=== PATIENT | female | born 2000 | race African-American/Black ===

== ENCOUNTER 2024-05-21 08:34 | Emergency (ER) | payer OTHER, SELFPAY ==
[2024-05-21] VITALS (8 sets, daily range): BP systolic 133–137; BP diastolic 85–91; PULSE 76–93; RESP 17–20; TEMP 36.4; O2SAT 96–100
--- NOTE | ~2024-05-21 | XR_ITS ---
EXAMINATION: XR chest 2V DATE: 05/21/2024 09:11 INDICATION: Chest pain. TECHNIQUE: Frontal and lateral views of the chest were obtained. COMPARISON: None. FINDINGS: There is no pneumonia, pleural effusion, or pneumothorax. The heart size is normal. IMPRESSION: 1. No acute cardiopulmonary disease. Reviewed, dictated and finalized at location [] CLEANER
--- NOTE | 2024-05-21 08:36 | ECG_ITS ---
Test Date: 2024-05-21 08:40:52 Measurements Intervals Fate Rate: 85 P: 59 NJ: 146 QRS: 28 QRSD: 83 T: 47 QT: 360 QTc: 428 Interpretive Statements SINUS RHYTHM WITH SINUS ARRHYTHMIA NORMAL ECG No previous ECG available for comparison Electronically Signed On 05-21-2024 08:49:43 ENTERPRISE SALES PERSON by Denis Delaney D.O.
[2024-05-21] MEDS: ASPIRIN 81 MG CHEWABLE TABLET 324 MG PO (08:44)
[2024-05-21 08:51] LABS: Basophils Absolute Auto 0.1 K/mm3 (0.0-0.1); Basophils Percent Auto 0.6 % (0.2-1.2); Eosinophils Absolute Auto 0.2 K/mm3 (0-0.3); Hematocrit 37.5 % (37.0-47.0); Hemoglobin 11.5 g/dL (12.0-15.0); Immature Granulocyte Absolute 0.03 K/mm3 (0.00-0.031); Immature Granulocyte Percent A 0.3 % (0-0.5); Lymphocytes Absolute Auto 3.03 K/mm3 (0.9-3.2); Lymphocytes Percent Auto 34.1 % (18.3-44.2); Mean Corpuscular HGB Conc 30.7 g/dl (32-36); Mean Corpuscular Hemoglobin 25.7 pg (26-34); Mean Corpuscular Volume 83.9 fl (80-100); Mean Platelet Volume 10.7 fl (7.4-10.4); Monocytes Absolute Auto 0.4 K/mm3 (0.1-0.6); Neutrophils Absolute Auto 5.2 K/mm3 (1.3-6.7); Platelet Count Result 285 k/mm3 (150-375); Red Blood Count 4.47 M/mm3 (4.2-5.4); Red Cell Distribution Width 15.2 % (11.5-14.5); White Blood Count 8.9 K/mm3 (4.5-10.0)
[2024-05-21 09:02] LABS: Alanine Aminotransferase 21 U/L (6-35); Alkaline Phosphatase 85 U/L (38-126); Anion Gap 9 mmol/L (4-12); Aspartate Amino Transferase 24 U/L (14-36); Bilirubin,Total 0.3 mg/dL (0.2-1.3); Blood Urea Nitrogen 15 mg/dL (7-17); Calcium 8.8 mg/dL (8.4-10.2); Carbon Dioxide 26 mmol/L (22-30); Chloride 105 mmol/L (98-107); Estimated CRCL calculation 109 ml/min; Estimated Glomerular Filt Rate > 60; Glucose 99 mg/dL (65-110); Lipase 158 U/L (23-300); Potassium 3.8 mmol/L (3.4-5.0); Sodium 140 mmol/L (137-145)
[2024-05-21 09:13] LABS: Troponin I < 0.012 ng/mL (0.000-0.034)
[2024-05-21 09:24] LABS: Prothrombin Time 13.4 Seconds (11.1-14.7)
[2024-05-21 09:26] LABS: Partial Thromboplastin Time 26.2 Seconds (22.3-36.8)
--- NOTE | 2024-05-21 09:54 | ED_ITS ---
HPI - Chest Pain General Chief Complaint: Chest Pain Stated Complaint: chest pains Time Seen by Provider: 05/21/24 08:42 Source: patient Mode of arrival: ambulatory Limitations: no limitations History of Present Illness HPI narrative: 23-year-old otherwise healthy here with the complaints of epigastric and retrosternal pain which started this morning after eating a donut. She denies having any shortness of breath, cough, nausea. No previous issue nauseated. Related Data Allergies Allergy/AdvReac Type Severity Reaction Status Date / Time No Known Allergies Allergy Verified 05/21/24 08:41 Review of Systems 2 Review of Systems: All systems reviewed & are unremarkable except as noted in HPI and below Constitutional: Constitutional: Reports no additional constitutional complaints Eyes: Eyes: Reports no additional eye complaints ENT: Reports system reviewed and no additional complaints, except as documented Cardiovascular: Cardiovascular: Reports as per HPI Respiratory: Respiratory: Reports no additional respiratory complaints Gastrointestinal: Gastrointestinal: Reports as per HPI Musculoskeletal: Musculoskeletal: Reports no additional musculoskeletal complaints Integumentary/Breasts: Skin/Breast: Reports system reviewed and no additional complaints, except as docu Exam 2 Narrative: GENERAL: Well-appearing, well-nourished, and in no acute distress. HEAD: Normocephalic, atraumatic. EYES: PERRLA and EOMI. ENT: Nares clear, no rhinorrhea or epistaxis. Mucous membranes moist. NECK: Supple. CHEST: Clear to auscultation. No respiratory distress. HEART: Regular rate and rhythm. No murmur heard. Normal peripheral pulses. ABDOMEN: Soft, mild epigastric tenderness, nondistended, normal active bowel sounds. EXTREMITIES: Normal range of motion. No edema. SKIN: Warm, dry, no rash. NEURO: No focal deficits. Alert and oriented x3. PSYCH: Normal mood and affect. Course Course Emergency Course: Notified patient about the lab work, EKG chest x-ray findings most likely has symptoms consistent with GERD. Vital Signs Vital signs: Vital Signs Temperature 36.4 C 05/21/24 08:37 Pulse Rate 87 05/21/24 08:37 Respiratory Rate 18 05/21/24 08:37 Blood Pressure 137/85 05/21/24 08:37 Pulse Oximetry 96 05/21/24 08:37 Oxygen Delivery Room Air 05/21/24 08:37 Temperature 36.4 C 05/21/24 08:37 Pulse Rate 80 05/21/24 08:42 Respiratory Rate 18 05/21/24 08:37 Blood Pressure 137/85 05/21/24 08:37 Pulse Oximetry 100 05/21/24 08:41 Oxygen Delivery Room Air 05/21/24 08:41 MDM - Chest Pain Differential Diagnosis Differential diagnosis: Likely stable angina, atypical chest pain, st elevation myocardial infarction and chest pain Medical Records Data Attestation: I reviewed the patient's medical records. Lab Data Attestation: I reviewed the patient's lab results. 05/21/24 08:44 05/21/24 08:44 Labs: Lab Results 05/21/24 Range/Units 08:44 WBC 8.9 (4.5-10.0) K/mm3 RBC 4.47 (4.2-5.4) M/mm3 Hgb 11.5 L (12.0-15.0) g/dL Hct 37.5 (37.0-47.0) % MCV 83.9 (80-100) fl MCH 25.7 L (26-34) pg MCHC 30.7 L (32-36) g/dl RDW 15.2 H (11.5-14.5) % Plt Count 285 (150-375) k/mm3 MPV 10.7 H (7.4-10.4) fl Immature Gran % (Auto) 0.3 (0-0.5) % Neut % (Auto) 58.0 (45.5-73.1) % Lymph % (Auto) 34.1 (18.3-44.2) % Mcduffie % (Auto) 5.0 (2.6-8.5) % Eos % (Auto) 2.0 (0-4.4) % Baso % (Auto) 0.6 (0.2-1.2) % Lymph # (Auto) 3.03 (0.9-3.2) K/mm3 [place]ff[place] # (Auto) 0.4 (0.1-0.6) K/mm3 Eos # (Auto) 0.2 (0-0.3) K/mm3 Baso # (Auto) 0.1 (0.0-0.1) K/mm3 Abs Immat Gran (auto) 0.03 (0.00-0.031) K/mm3 Absolute Neuts (auto) 5.2 (1.3-6.7) K/mm3 Absolute Nucleated RBC 0.000 (0.0-0.012) K/mm3 Nucleated RBC % 0.0 (0.0-0.2) % PT 13.4 (11.1-14.7) Seconds INR 1.0 APTT 26.2 (22.3-36.8) Seconds Sodium 140 (137-145) mmol/L Potassium 3.8 (3.4-5.0) mmol/L Chloride 105 (98-107) mmol/L Carbon Dioxide 26 (22-30) mmol/L Anion Gap 9 (4-12) mmol/L BUN 15 (7-17) mg/dL Creatinine 0.90 (0.7-1.0) mg/dL Estim Creat Clear Calc 109 ml/min Estimated GFR > 60 (59 - ) Glucose 99 (65-110) mg/dL Calcium 8.8 (8.4-10.2) mg/dL Total Bilirubin 0.3 (0.2-1.3) mg/dL AST 24 (14-36) U/L ALT 21 (6-35) U/L Alkaline Phosphatase 85 (38-126) U/L Troponin I < 0.012 (0.000-0.034) ng/mL Total Protein 8.0 (6.3-8.2) g/dL Albumin 4.0 (3.5-5.1) g/dL Lipase 158 (23-300) U/L ECG Data EKG #1: ECG completion date: 05/21/24 ECG completion time: 08:40 EKG Interpretation: normal rate (85), sinus rhythm, normal QT and NL axis Discharge Plan Discharge Clinical Impression: Chest pain Qualifiers: Chest pain type: unspecified Qualified Code(s): R07.9 - Chest pain, unspecified Patient Disposition: Home, Self-Care Condition: Stable Instructions: Chest Pain (ED) Additional Instructions: Take medication as prescribed, follow-up with your primary doctor Patient Language: Sami Prescriptions: New esomeprazole magnesium [Nexium] 40 mg capsule,delayed release(DR/EC) 40 mg PO DAILY Qty: 14 0RF Follow-up/Referrals: PHYSICIAN,WOOD PREPARATION SUPERVISOR [Non-Staff] - Nikolai Back MD [Physician] - Time of Disposition: 10:03
[2024-05-21] MEDS: KETOROLAC 30 MG/ML VIAL (*BKC) IV PUSH (10:03)
--- OUTSIDE RECORDS SUMMARY | 2024-05-21 10:47 | XMS_ITS | Referral Summary ---
Author Organization [facility] Address [address] [place] [address] Care Team Providers Care Assistant Media Planner Name Role Phone No, Physician Primary Care Provider [phone] Allergies No known active allergies Medications diphenhydrAMINE (diphenhydrAMIN E) 25 mg capsule Take 1-2 tablet/capsu le (25-50 mg total) by mouth nightly as needed for itching 20 capsule 09/08/2018 Active Social History Tobacco Use Types Packs/Day Years Used Date Smoking Tobacco: Never Smokeless Tobacco: Never Personal Safety Answer Date Recorded Getting School Help Needed Not on file 07/02 Comments Unknown Sex and Gender Information Value Date Recorded Sex Assigned at Not on file 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 Gender Identity Not on file Sexual Orientation Not on file Last Filed Vital Signs Vital Sign Reading Time Taken Comments Blood Pressure 117/87 12/13/2021 1:00 AM CDT Pulse 79 12/13/2021 1:00 AM CDT Temperature 36.7 ??C (98 ??F) 12/12/2021 8:32 PM CDT Respiratory Rate 18 12/13/2021 1:00 AM CDT Oxygen Saturation 100% 12/13/2021 1:00 AM CDT Inhaled Oxygen Concentration - - Weight 127.8 kg (281 lb 12 oz) 12/12/2021 8:32 P M CDT Height 162.6 cm (5' 4 ) 12/12/2021 8:32 PM CDT Body Mass Index 48.36 12/12/2021 8:32 PM CDT Plan of Treatment Not on file Insurance IDPA [facility] Advance Directives For more information, please contact: [phone] Documents on File Type Date Recorded 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
--- OUTSIDE RECORDS SUMMARY | 2024-05-21 10:47 | XMS_ITS | Continuity of Care Document ---
Author Organization [facility] Address [address] [place] [address] Phone Care Team Providers Care Automotive Wholesale Parts Advisor Name Role Phone Luke Carey MD Unavailable Unavailable Allergies, Adverse Reactions, Alerts Substance Reaction Status Criticality No Known Allergies Active No Inform ation Procedures Procedure Date New (Level 3) OFFICE/OUTPATIENT VISIT Advance Directives Directive Yes / No Effective Date File Name No Information Encounters Encounter Description Practice Location Reason(s) For Visit Diagnoses Date Provider Providers Copied on Encounter [facility], [address], [place], [place], [id number], [place] tel:[phone] [facility] No Information [address], [place], [address], [place]. tel:[phone] Referring Provider: Luke Carey, [address], [place], [address]. tel:[phone] New (Level 3) OFFICE/OUTPAT IENT VISIT [facility], [address], [place], [place], [id number], [place] tel:[phone] [facility] swelling (chief complaint) Body mass index (BMI) 45.0-49.9, adultAngioed katalina, initial encounter [address], [place], [address], [place]. tel:[phone] Referring Provider: Luke Carey, [address], [place], [address]. tel:[phone] Family History Family Member Type Diagnosis Age At Onset Problem No family history of Asthma Father Problem Rhinitis Problem No family history of Thyroid disease Problem No family history of Systemi c lupus erythematosus Problem No family history of Angioed katalina Problem No family history of Rheumat oid arthritis Payers Payer name Insurance type Covered constitution party ID Trey williamson(s) [facility] [id number] Social History Type Description Quantity Date Captured Comments Alcohol Use Details Unknown Caffeine Use Details Unknown Tobacco Use Status No Information Smoking Status No Information Sex Female Chief Complaint And Reason For Visit No Information Reason For Referral Reason For Referral No Information History Of Present Illness Encounter Date Complaint History Of Prese nt Illness swelling AngioedemaJohanna fraga had episodes of eyelid swelling. It happens intermittently. The first episode was in 2019. It happens only a few times per year, generally only in the spring. It can be on either eye, but each episode is always unilateral. This generally resolves after about 1-2 weeks. She does experience a prodrome of puffiness before the swelling starts. She does typically go to the urgent care for these episodes. She has been treated with oral steroids or topical steroids. The oral steroids did seem to shorten the episodes. No associated hives, coughing, wheezing, or dyspnea. No vomiting or abdominal pain. No lightheadedness, dizziness, fevers, chills, or night sweats. No abdominal pain unrelated to the episodes. No episodes of angioedema elsewhere, including of the fingers, toes, lips, or genitals. No family history of swelling. She shared photos of the angioedema.No history of rhinitis. She does not routinely take any medications.PMH: only as abovePSH: noneMedication Allergies: NKDAFHRhinitis - dadNo FH of asthma, angioedema, RA, SLE, thyroid diseaseSHTobacco: Never smokerOccupation: not workingEnvironmental HistoryLives in a house w/ central air/forced heat, w/o evidence of mold/water damageFlooring in Bedroom: carpetPets: none Functional Status Date Functional Assessmen t No Information Instructions Date Instruction Additional Infor mation - when you have an e pisode (or feel one coming on)- please take prednisone 60 mg once- take benadryl 50 mg once Related to Angioedema, initial encounter Giving encouragement to exercise Related to Body mass index [BMI] 45.0-49.9, adult Assessments Type Assessment Date No Information Patient Care Teams Name Effective Dates (start - stop) Status Members No Information
--- OUTSIDE RECORDS SUMMARY | 2024-05-21 10:47 | XMS_ITS | Clinical Summary ---
Author Organization [facility] Address [address] [place] [address] Care Team Providers Care Editor School Photograph Name Role Phone No, Physician Primary Care Provider [phone] Allergies No known active allergies Medications diphenhydrAMINE (diphenhydrAMIN E) 25 mg capsule Take 1-2 tablet/capsu le (25-50 mg total) by mouth nightly as needed for itching 20 capsule 09/08/2018 Active Medical History Medical History Date Comments Eczema Social History Tobacco Use Types Packs/Day Years Used Date Smoking Tobacco: Never Smokeless Tobacco: Never Personal Safety Answer Date Recorded Getting School Help Needed Not on file 07/02 Comments Unknown Sex and Gender Information Value Date Recorded Sex Assigned at Not on file 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 Gender Identity Not on file Sexual Orientation Not on file Obstetrics History Last Filed Vital Signs Vital Sign Reading [...] 12/12/2021 8:32 PM CDT Plan of Treatment Health Maintenance Due Date Last Done Comments Cervical Cancer Screening 1998 Depression Screening 1998 Hepatitis C Screening 1998 Regular Well Visit/Exam 18-64 2016 DTaP/Tdap/Td Vaccine (7 - Td or Tdap) 08/02/2019 08/01/2009, 12/04/2002, 10/09/1999, Additional history exists Influenza Vaccine (#1) 2023 01/10/2014 Pneumococcal vaccine <65 Aged Out 03/16/2000 No longer eligible based on patient's age to complete this topic Varicella Vaccines Completed 01/04/2008, 06/17/1999 HPV Vaccines Completed 01/10/2014, 12/18, 12/02/2011 Insurance IDPA [facility] Advance Directives For more information, please contact: [phone] Documents on File Type Date Recorded Patient Computer Systems Analyst Expl anation ADVANCE DIRECTIVE 09/08/2018 8:46 PM Care Teams Editor School Photograph Relationship Specialty Start Date End Date No, Physician PCP - General 03/25/20
== END 2024-05-21 10:17 | disposition home or self-care (01) ==
PROVIDERS: Emergency Provider Family Medicine
DX: R07.2 Precordial pain (principal)
CPT/HCPCS: 36415; 71046; 80053; 83690; 84484; 85025; 85610; 85730; 93005; 96374; 99284; A9270; J1885

== ENCOUNTER 2025-01-26 18:03 | Emergency (ER) | payer OTHER, SELFPAY ==
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
[2025-01-26 18:04] VITALS: BP 140/85; PULSE 96; RESP 16; TEMP 36.4; O2SAT 99
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
[2025-01-26] MEDS: SODIUM CHLORIDE 0.9% IV 1,000 ML 999 ML IV CONT (19:37)
[2025-01-26] MEDS: MORPHINE SULFATE (*CRX) 4 MG/ML INJ IV PUSH (19:37)
[2025-01-26 19:40] VITALS: BP 130/69; PULSE 98; RESP 20; O2SAT 100
[2025-01-26 19:50] LABS: Hematocrit 38.4 % (37.0-47.0); Hemoglobin 11.8 g/dL (12.0-15.0); Immature Granulocyte Percent A 0.3 % (0-0.5); Lymphocytes Absolute Auto 2.25 K/mm3 (0.9-3.2); Mean Corpuscular HGB Conc 30.7 g/dl (32-36); Mean Corpuscular Hemoglobin 25.6 pg (26-34); Mean Corpuscular Volume 83.3 fl (80-100); Nucleated Red Blood Cells Absolute Auto 0.000 K/mm3 (0.0-0.012); Nucleated Red Blood Cells Perc 0.0 % (0.0-0.2); Platelet Count Result 315 k/mm3 (150-375); Red Blood Count 4.61 M/mm3 (4.2-5.4); White Blood Count 10.3 K/mm3 (4.5-10.0)
[2025-01-26 20:02] LABS: Alanine Aminotransferase 23 U/L (6-35); Albumin Level 4.1 g/dL (3.5-5.1); Alkaline Phosphatase 79 U/L (38-126); Anion Gap 7 mmol/L (4-12); Aspartate Amino Transferase 30 U/L (14-36); Bilirubin,Total 0.5 mg/dL (0.2-1.3); Blood Urea Nitrogen 17 mg/dL (7-17); Calcium 9.2 mg/dL (8.4-10.2); Carbon Dioxide 24 mmol/L (22-30); Chloride 107 mmol/L (98-107); Estimated CRCL calculation 106 ml/min; Estimated Glomerular Filt Rate > 60; Glucose 94 mg/dL (65-110); Potassium 4.6 mmol/L (3.4-5.0); Sodium 138 mmol/L (137-145); Total Protein 8.4 g/dL (6.3-8.2)
[2025-01-26 20:06] LABS: Add Urine Microscopic? YES; Appearance Urine Clear (Clear); Glucose Urine UA Negative (Negative); Leukocyte Esterase Ur Negative LEU/UL (Negative); Nitrate Urine Negative (Negative); Specific Grav Ur 1.028 (1.001-1.035)
[2025-01-26 20:10] LABS: INR 1.0; Partial Thromboplastin Time 27.1 Seconds (22.3-36.8); Prothrombin Time 13.6 Seconds (11.1-14.7)
[2025-01-26 20:13] LABS: Pregnancy On Board Control Positive
[2025-01-26 21:53] VITALS: PULSE 91; RESP 20; O2SAT 99
--- NOTE | 2025-01-26 21:57 | PC.NURSE ---
C-collar removed by PHOTO TECHNICIAN.
[2025-01-26 22:01] VITALS: BP 119/72
[2025-01-26] MEDS: KETOROLAC 15 MG/ML VIAL (*BKC) IV PUSH (22:11)
== END 2025-01-26 22:16 | disposition home or self-care (01) ==
PROVIDERS: Emergency Provider Registered Nurse
DX: S06.0X0A Concussion without loss of consciousness, initial encounter (principal); S13.4XXA Sprain of ligaments of cervical spine, initial encounter; S29.012A Strain of muscle and tendon of back wall of thorax, initial encounter; S39.012A Strain of muscle, fascia and tendon of lower back, initial encounter; V43.52XA Car driver injured in collision with other type car in traffic accident, initial encounter
CPT/HCPCS: 36415; 70450; 71260; 72125; 72129; 72132; 74177; 80053; 81001; 81025; 85025; 85610; 85730; 96361; 96374; 96375; 99284; J1885; J2270; J7030; Q9967